=== PATIENT | female | born 1930 | race Caucasian/White ===

== ENCOUNTER 2017-06-14 19:53 | Emergency (ER) | payer MEDICARE ==
[2017-06-14 19:56] VITALS: BP 148/72; PULSE 79; RESP 20; TEMP 98.2; O2SAT 95
[2017-06-14] MEDS ORDERED: IPRA17I INH (21:05)
--- NOTE | 2017-06-14 21:26 | PD ---
HPI Chief Complaint: Pain: Acute or Chronic Time Seen by Provider: 21:19 Travel History International Travel<30 days: No Contact w/Intl Traveler<30days: No Traveled to known affect area: No History of Present Illness HPI The patient is an 87-year-old female that complains of left femur pain when she tries to bear weight. She has not been able to walk since yesterday because of the pain. She does have a history of osteoporosis. She denies any numbness, tingling or radiation of pain. She denies any trauma. She denies any fever or chills. PFSH Past Medical History COPD: Yes Diminished Hearing: No Tetanus Vaccination: < 5 Years Influenza Vaccination: Yes Ovarian Cysts: Yes (partial oophrectomy) Past Surgical History Appendectomy: Yes Social History Alcohol Use: Yes (occ) Tobacco Use: No Substance Use: No Allergies-Medications (Allergen,Severity, Reaction): Coded Allergies: Demerol (Verified Allergy, Unknown, 06/14/17) Penicillin (Verified Allergy, Unknown, 06/14/17) Reported Meds & Prescriptions Reported Meds & Active Scripts Active Reported Atrovent HFA 12.9 GM Inh (Ipratropium Gila) 17 Mcg/Act Aer 2 Puff INH TID Review of Systems Except as stated in HPI: all other systems reviewed are Neg Physical Exam Narrative GENERAL: The patient is alert, oriented 3 and slight apparent distress with her left femoral pain. Her vital signs show blood pressure 148/72 but are otherwise normal. SKIN: Focused skin assessment warm/dry. HEAD: Atraumatic. Normocephalic. EYES: Pupils equal and round. No scleral icterus. No injection or drainage. ENT: No nasal bleeding or discharge. Mucous membranes pink and moist. NECK: Trachea midline. No JVD. CARDIOVASCULAR: Regular rate and rhythm. No murmur appreciated. RESPIRATORY: No accessory muscle use. Clear to auscultation. Breath sounds equal bilaterally. GASTROINTESTINAL: Abdomen soft, non-tender, nondistended. Hepatic and splenic margins not palpable. MUSCULOSKELETAL: No obvious deformities. No clubbing. No cyanosis. No edema. There is tenderness over the left mid and distal femur but no deformity is noted. There is no hip tenderness. Full range of motion of the left hip is possible without pain or radiation of pain. Internal and external rotation of the left hip causes no pain. NEUROLOGICAL: Awake and alert. No obvious cranial nerve deficits. Motor grossly within normal limits. Normal speech. PSYCHIATRIC: Appropriate mood and affect; insight and judgment normal. Data Data Last Documented VS Vital Signs Date Time Temp Pulse Resp B/P Pulse Ox O2 Delivery O2 Flow Rate FiO2 06/14/17 19:56 98.2 79 20 148/72 95 Orders Hip, Uni(Ap&Lat) W Ap Pelvis (06/14/17 21:23) Femur (Ap & Lat/2vws) (06/14/17 21:23) MDM Medical Decision Making Medical Screen Exam Complete: Yes Emergency Medical Condition: Yes Medical Record Reviewed: Yes Interpretation(s) X-rays of the left hip, pelvis and left femur are negative for fracture. Differential Diagnosis Fractured hip, fracture pelvis, fractured femur, arthritis hip, muscular pain left femur Narrative Course The patient has pain over the muscular areas of the left femur. I offered her admission but she declined stating that she can injure way along with a walker. She will follow up with Dr. Sue next week. Diagnosis Primary Impression: Pain of left femur Additional Instructions: Use a walker as you mentioned and follow-up with Dr. Sue next week. Disposition: 01 DISCHARGE HOME Condition: Stable Eros Helms MD Jun 14, 2017 21:26
--- NOTE | 2017-06-14 22:19 | RADRPT ---
EXAM DATE/TIME: 06/14/2017 21:34 [facility] COMPARISON: No previous studies available for comparison. INDICATIONS : Hip pain MEDICAL HISTORY : Osteoporosis. Chronic obstructive pulmonary disease. Pagets disease. SURGICAL HISTORY : None. ENCOUNTER: Initial ACUITY: 2 days PAIN SCORE: 3/10 LOCATION: Left anterior hip FINDINGS: 3 views of the pelvis and left hip. Bone alignment within normal limits. No evidence of fracture. No evidence of joint narrowing. Prominent degenerative findings of the lumbar spine. CONCLUSION: No evidence of fracture. Jono Grant MD on June 14, 2017 at 22:16 Board Certified Radiologist. This report was verified electronically.
--- NOTE | 2017-06-14 22:20 | RADRPT ---
EXAM DATE/TIME: 06/14/2017 21:46 [facility] COMPARISON: No previous studies available for comparison. INDICATIONS : Femur pain. MEDICAL HISTORY : Osteoporosis. Chronic obstructive pulmonary disease. Pagets disease. SURGICAL HISTORY : None. ENCOUNTER: Initial ACUITY: 2 days PAIN SCORE: 3/10 LOCATION: Left anterior distal femur FINDINGS: 4 views of the left femur. Bone alignment within normal limits. No evidence of fracture. CONCLUSION: No evidence of fracture. Jono Grant MD on June 14, 2017 at 22:18 Board Certified Radiologist. This report was verified electronically.
== END 2017-06-14 22:56 | disposition home or self-care (01) ==
LOC: PHED 19:53
DX: M79.652 Pain in left thigh (principal)
CPT/HCPCS: 73502; 73552; 99283